=== PATIENT | female | born 1960 | race Two or more races ===

== ENCOUNTER → 2017-12-11 | Outpatient (CLI) | payer OTHER ==
[2017-12-11] MEDS: REGADENOSON 0.4 MG/5 ML DISP.SYRIN. IV (10:36)
== END | disposition home or self-care (01) ==
LOC: NM 08:55
DX: R07.89 Other chest pain (principal)
CPT/HCPCS: 78452; 93017; 96374; 96375; 96376; A9500; J2785

== ENCOUNTER → 2018-01-01 | Day surgery (SDC) | payer OTHER ==
[~2018-01-01] MED LIST: HYDROmorphone 2 MG/ML VIAL IV; LIDOCAINE 1% PF 2 ML VIAL. ID; LIDOCAINE 2% PF Vial for OR 5 ML VIAL.; MORPHINE SULFATE 2 MG/ML DISP.SYRIN. IV; ONDANSETRON PF 4 MG/2 ML VIAL. IV; PROCHLORPERAZINE 10 MG/2 ML VIAL. IV; PROPOFOL 40 ML IV; fentaNYL PF VIAL 100 MCG/2 ML VIAL IV
[2018-01-01] MEDS: IV RINGERS,LACTATED 1000ML 1,000 ML IV (15:16)
== END | disposition home or self-care (01) ==
LOC: SURG 14:49
DX: K22.11 Ulcer of esophagus with bleeding (principal); K29.50 Unspecified chronic gastritis without bleeding; K64.0 First degree hemorrhoids; K63.89 Other specified diseases of intestine; Z80.6 Family history of leukemia; F17.200 Nicotine dependence, unspecified, uncomplicated; Z79.899 Other long term (current) drug therapy; Z90.49 Acquired absence of other specified parts of digestive tract; Z98.51 Tubal ligation status; K21.9 Gastro-esophageal reflux disease without esophagitis; Z90.721 Acquired absence of ovaries, unilateral; E03.9 Hypothyroidism, unspecified
CPT/HCPCS: 43239; 45380; 88305; J2704